=== PATIENT | male | born 1990 | race Caucasian/White ===

== ENCOUNTER 2016-05-30 14:37 | Emergency (ER) | payer OTHER ==
[2016-05-30 15:03] VITALS: BP 138/63; PULSE 69; RESP 18; TEMP 98.2; O2SAT 98
--- NOTE | 2016-05-30 15:13 | EDPHY ---
H & P Time Seen by Provider: 05/30/16 15:12 HPI/ROS: CHIEF COMPLAINT: Hand laceration HISTORY OF PRESENT ILLNESS: This 25-year-old man was opening a package at work when he cut the dorsum of his left hand on a metal strap about an hour prior to arrival. Was seen at urgent care was sent here for concern for deep space injury. REVIEW OF SYSTEMS: No foreign body sensation and no weakness or numbness distally. PAST MEDICAL HISTORY: Negative, tetanus up-to-date. Social history: Work related General Appearance: Alert and conversant, cooperative. Patient has 3x 1 cm laceration on each finger of small, ring and middle finger of the left hand on the dorsum of the proximal phalanx. Sensation preserved to light touch and two-point discrimination. FDS FDP and extensor tendon function is intact. Normal capillary refill. Emergency Department course/MDM: Local anesthesia was 0.5% bupivacaine without epinephrine. Wound care performed and sutured. No tendon laceration seen and exam was performed with tourniquet and through full range of motion of each finger. Smoking Status: Never smoked Constitutional: Initial Vital Signs Temperature (C) 36.8 C 05/30/16 15:00 Heart Rate 69 05/30/16 15:00 Respiratory Rate 18 05/30/16 15:00 Blood Pressure 138/63 H 05/30/16 15:00 O2 Sat (%) 98 05/30/16 15:00 O2 Delivery Mode Room Air Allergies/Adverse Reactions: unsure Allergy (Uncoded 05/30/16 15:00) Home Medications: Medication Instructions Recorded NK [No Known Home Meds] 05/30/16 MDM/Departure - MDM Procedures: Procedure: Laceration repair. Verbal consent was obtained from the patient. The total 3 cm laceration on the dorsum left hand fingers was anesthetized using 0.5% bupivacaine with out epinephrine. The wound was irrigated with standard emergency department protocol, draped and explored. There were no deep structures involved. No tendon injury was identified. No foreign body found. The wound was repaired with 5 O Ethilon. The wound repair was simple. Excellent hemostasis was obtained. Wound care instructions were discussed and the patient was warned regarding scarring. The procedure was performed by myself. - Depart Disposition: Home, Routine, Self-Care Clinical Impression: Laceration of left hand Condition: Good Instructions: Care For Your Stitches (ED), Finger Laceration (ED) Additional Instructions: No use of left hand until approved by work comp clinic. See work comp clinic in 24-48 hours for wound check and evaluation for return to normal activity. Suture removal 10 days. [facility] [address] [place] [address], [place], [place] [phone] Referrals: NONE *PRIMARY CARE P,. [Primary Care Provider] - As per Instructions Work Comp Ref/Restrictions [Outside] - As per Instructions Julio Batista MD [Medical Doctor] - As per Instructions
== END 2016-05-30 16:47 | disposition home or self-care (01) ==
PROC: 0HQGXZZ Repair Left Hand Skin, External Approach (ICD-10-PCS; principal; 2016-05-30)
DX: S61.412A Laceration without foreign body of left hand, initial encounter (principal); W45.8XXA Other foreign body or object entering through skin, initial encounter; Y92.69 Other specified industrial and construction area as the place of occurrence of the external cause; Y99.8 Other external cause status; Y93.89 Activity, other specified

== ENCOUNTER 2016-06-02 16:14 | Emergency (ER) | payer OTHER ==
[2016-06-02 16:40] VITALS: BP 130/62; PULSE 71; RESP 14; TEMP 97.3; O2SAT 98
--- NOTE | 2016-06-02 16:48 | UCPHY ---
H & P Time Seen by Provider: 06/02/16 16:42 Patient Type: Established HPI/ROS: CHIEF COMPLAINT: Wound check HPI: The patient is a 25-year-old male that was seen here 3 days ago for lacerations to his left 5th, 4th and 3rd digits. He presents to the urgent care for scheduled wound check. The patient denies fever, drainage from wound, numbness or other concerns. FAMILY HISTORY: Reviewed, noncontributory PHYSICAL EXAM: General:Patient is alert, in no acute distress. Extremities: Lacerations on the dorsal aspect of the left 5th, 4th and 3rd digits are clean dry and intact. The patient has intact light touch sensation throughout all digits. Capillary refill is normal. No discharge. No surrounding erythema. Light touch sensation and motor function is preserved in the axillary, median, radial and ulnar nerve distributions. There is a 2+ radial pulse with brisk cap refill. Neuro: Oriented x3. Normal motor function. Normal sensory function. Smoking Status: Never smoked Constitutional: Initial Vital Signs Temperature (C) 36.3 C 06/02/16 16:36 Heart Rate 71 06/02/16 16:36 Respiratory Rate 14 06/02/16 16:36 Blood Pressure 130/62 H 06/02/16 16:36 O2 Sat (%) 98 06/02/16 16:36 O2 Delivery Mode Room Air Allergies/Adverse Reactions: amoxicillin Allergy (Verified 06/02/16 16:40) unsure Allergy (Uncoded 05/30/16 15:00) Home Medications: Medication Instructions Recorded NK [No Known Home Meds] 05/30/16 Medical Decision Making ED Course/Re-evaluation: Patient presents for wound check. Wounds appear clean dry and intact and healing well. Departure - Departure Disposition: Home, Routine, Self-Care Clinical Impression: Visit for wound check Condition: Good Instructions: Care For Your Stitches (ED) Additional Instructions: Sutures out in 10-14 days from original repair. Return for fever, bleeding, discharge. OK to shower and return to work. Referrals: NONE *PRIMARY CARE P,. [Primary Care Provider] - As per Instructions Stand Alone Forms: Work Limited Duty - PQRS PQRS Measurement: n/a
== END 2016-06-02 17:17 | disposition home or self-care (01) ==
LOC: CED 16:14
DX: Z48.00 Encounter for change or removal of nonsurgical wound dressing (principal); S61.412D Laceration without foreign body of left hand, subsequent encounter
CPT/HCPCS: 99213-PO; G0463-PO